=== PATIENT | female | born 2000 | race Caucasian/White ===

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

== ENCOUNTER → 2024-04-08 | Outpatient (CLI) | payer BC ==
[~2024-04-08] MED LIST changes: +MULTI VITAMIN1 EACH PO; +ONDA4ODT MM
[2024-04-17 04:53] LABS: HPV HIGH RISK BY TMA Not Detected; HPV SOURCE Cervical
== END ==
LOC: LAB 17:35 → LAB SHORT 17:35
PROVIDERS: Nurse Practitioner Family
DX: Z01.419 Encounter for gynecological examination (general) (routine) without abnormal findings (principal)
CPT/HCPCS: 87624; G0123